=== PATIENT | female | born 1960 | race Caucasian/White ===

== ENCOUNTER → 2016-12-21 | Outpatient (CLI) | payer BC | LOC: LAB 09:15 | PROVIDERS: ATTEND Family Medicine | DX: E80.1 Porphyria cutanea tarda (principal) | CPT/HCPCS: 85018; 99195 ==

== ENCOUNTER → 2017-02-16 | Outpatient (CLI) | payer BC ==
[2017-02-16 09:32] LABS: HEMATOCRIT 45.3 % (37.0-47.0); HEMOGLOBIN 15.7 g/dL (12.0-16.0); MEAN CORPUSCULAR HGB CONC 34.7 g/dL (33-37); MEAN CORPUSCULAR VOLUME 92.3 FL (81-99); MEAN PLATELET VOLUME 9.9 FL (7.4-12.2); RED BLOOD COUNT 4.91 10^6/uL (4.20-5.40)
== END ==
LOC: LAB 09:18
PROVIDERS: ATTEND Family Medicine
DX: E80.1 Porphyria cutanea tarda (principal)
CPT/HCPCS: 36415; 85027; 99195

== ENCOUNTER → 2017-04-09 | Outpatient (CLI) | payer BC | LOC: LAB 09:41 | PROVIDERS: ATTEND Family Medicine | DX: E80.1 Porphyria cutanea tarda (principal) | CPT/HCPCS: 85018; 99195 ==

== ENCOUNTER → 2017-06-10 | Outpatient (CLI) | payer BC | LOC: LAB 08:41 | PROVIDERS: ATTEND Family Medicine | DX: E80.1 Porphyria cutanea tarda (principal) | CPT/HCPCS: 85018; 99195 ==